=== PATIENT | male | born 1955 ===

== ENCOUNTER 2017-01-01 07:38 | Day surgery (SDC) | payer MEDICAID ==
[2017-01-01 08:29] VITALS: BMI 25.8
--- NOTE | 2017-01-01 10:50 | CP.SDSHP ---
Same Day Surgery H & P - History Proposed Procedure: colonoscopy Pre-Op Diagnosis: h/o colon polyps - Previous Medical/Surgical History Endocrine/Metabolic: Diabetes Comments: hyperlipidemia - Allergies Allergies: Allergies glycopyrrolate Adverse Reaction (Verified 01/01/17 10:13) RASH, HIVES PT. CLAIMS MANY YEARS AGO HE HAD A REACTION (RASH), TO A MEDICATION AFTER A PROCEDURE. HE DOES NOT KNOW THE NAME OF MED., OR THE PROCEDURE. propofol Adverse Reaction (Verified 01/01/17 10:13) RASH, HIVES CLAIMS HE HAD A REACTION, RASH, FROM A MEDICINE MANY YEARS AGO AFTER A PROCEDURE. DOES NOT KNOW NAME OF MED, OR PROCEDURE. - Physical Exam General Appearance: NAD Mental Status: Alert & Oriented x3 Neuro: WNL Heart: WNL Lungs: WNL GI: WNL - {Optional Preform as Required} Abdomen: WNL - Impression Pt. Evaluated Today:Candidate for Anesthesia & Procedure: Yes - Date & Time Date: 01/01/17 Time: 10:50 Short Stay Discharge - Short Stay Discharge Admitting Diagnosis/Reason for Visit: SCREENING FOR MAL DEBORAH COLON Disposition: HOME/ ROUTINE
[2017-01-01] MEDS ORDERED: Lactated Ringer's 1,000 ML IV SCH (11:15)
[2017-01-01] MEDS ORDERED: Etomidate 20 mg/10ml Inj IV ONE (11:16)
[2017-01-01] MEDS ORDERED: Ketamine 50 mg/ml Inj (10 ml) ONE (11:19)
[2017-01-01 16:17] VITALS: O2SAT 98
[2017-01-01 16:22] VITALS: BP 132/81; PULSE 71; RESP 20; TEMP 97.9
== END 2017-01-01 14:35 | disposition home or self-care (01) ==
LOC: C.ENDO 07:38
PROVIDERS: ATTEND Internal Medicine Gastroenterology
DX: Z09 Encounter for follow-up examination after completed treatment for conditions other than malignant neoplasm (principal); Z86.010 Personal history of colon polyps; K64.1 Second degree hemorrhoids; E11.9 Type 2 diabetes mellitus without complications; Z79.84 Long term (current) use of oral hypoglycemic drugs
CPT/HCPCS: 45378; 82948; J3010; J7120